=== PATIENT | female | born 1960 | race Hispanic/Latino ===

== ENCOUNTER 2017-04-23 19:21 | Inpatient (IN) | payer MEDICAID ==
[2017-04-23] MEDS ORDERED: Iohexol 240 (50 ml) PO ONE (20:14)
[2017-04-23] MEDS ORDERED: Sodium Chloride 0.9% 1,000 ML IV STA (20:15)
--- NOTE | 2017-04-23 20:51 | ED PDOC ---
HPI: Abdomen Time Seen by Provider: 04/23/17 19:59 Chief Complaint (Nursing): Abdominal Pain Chief Complaint (Provider): Abdominal Pain History Per: Patient History/Exam Limitations: no limitations Onset/Duration Of Symptoms: Days (x2) Additional Complaint(s): Marita Montilla is a 56 year old female with previous medical history of diabetes, hypertension, and hypercholesterolemia who presents to the emergency department with a complaint of right-sided abdominal pain associated with nausea , constipation, small amount of clear urine frequency, nonbloody and nonbilious vomiting. Denied any dysuria, fever or chills. Of note, patient was told by PCP avoid NSAIDs due to potential renal damage. PMD: Sebas Mcmillan MD Past Medical History Reviewed: Historical Data, Nursing Documentation, Vital Signs Vital Signs: Last Vital Signs Temp 99.1 F 04/23/17 19:29 Pulse 103 H 04/23/17 19:29 Resp 16 04/23/17 19:29 BP 137/72 04/23/17 19:29 Pulse Ox 97 04/24/17 00:30 - Medical History PMH: Diabetes, HTN, Hypercholesterolemia - Family History Family History: States: Unknown Family Hx - Home Medications Home Medications: Ambulatory Orders Medication Instructions Recorded Carvedilol [Coreg] 12.5 mg PO BID 04/23/17 Cholecalciferol (Vitamin D3) 1 cap PO DAILY 04/23/17 [Vitamin D3] Fenofibrate,Micronized 134 mg PO DAILY 04/23/17 [Fenofibrate] Insulin Regular [HumuLIN R] 5 units SC TID 04/23/17 Insulin Glargine, Recombina 12.5 unit SC DAILY 04/23/17 [Lantus] Lisinopril/Hydrochlorothiazide 1 tab PO DAILY 04/23/17 [Lisinopril-Hctz 20-12.5 mg Tab] SITagliptin [Januvia] 1 tab PO DAILY 04/23/17 Simvastatin [Simvastatin] 1 tab PO DAILY 04/23/17 metFORMIN [glucOPHAGE] 750 mg PO BID 04/23/17 Levothyroxine [Synthroid] 50 mcg PO DAILY 04/24/17 - Allergies Allergies/Adverse Reactions: Allergies Allergy/AdvReac Type Severity Reaction Status Date / Time No Known Allergies Allergy Verified 09/30/16 19:31 Review of Systems ROS Statement: Except As Marked, All Systems Reviewed And Found Negative Constitutional: Negative for: Fever, Chills Gastrointestinal: Positive for: Nausea, Vomiting (nonbloody and nonbilious), Abdominal Pain (right-sided), Constipation Genitourinary Female: Positive for: Frequency (clear, small amount). Negative for: Dysuria Physical Exam - Reviewed Nursing Documentation Reviewed: Yes Vital Signs Reviewed: Yes - Physical Exam Appears: Positive for: Well, Non-toxic, No Acute Distress Head Exam: Positive for: ATRAUMATIC, NORMAL INSPECTION, NORMOCEPHALIC Skin: Positive for: Normal Color Cardiovascular/Chest: Positive for: Regular Rate, Rhythm Respiratory: Positive for: Normal Breath Sounds Gastrointestinal/Abdominal: Positive for: Bowel Sounds, Soft, Tenderness (RLQ). Negative for: Normal Exam Extremity: Positive for: Normal ROM Neurologic/Psych: Positive for: Alert, labor representative II-XII, Oriented - Laboratory Results Result Diagrams: 04/23/17 20:50 04/23/17 20:50 - ECG O2 Sat by Pulse Oximetry: 97 (RA) Pulse Ox Interpretation: Normal Medical Decision Making Medical Decision Making: Initial Impression: Abdominal pain R/O appendicitis and diverticulitis Initial Plan: * Type and screen * CT ABD/pelvis PO & IV contrast * Labs * Lipase * Urine dipstick * Morphine 2mg IVP * NS 1,000ml IV per 500mls/hr * Zofran 4mg IVP * Urinalysis * Admit to hospital * Reevaluation 1220 CT Abdomen and Pelvis With Intravenous Contrast TECHNIQUE: Axial computed tomography images of the abdomen and pelvis with intravenous contrast. This CT exam was performed using one or more of the following dose reduction techniques : automated exposure control, adjustment of the mA and/or kV according to patient size, and/ or use of iterative reconstruction technique. Coronal and sagittal reformatted images were created and reviewed. COMPARISON: No relevant prior studies available. FINDINGS: Fatty enlarged liver. Cholelithiasis. The spleen, pancreas and adrenal glands demonstrate no acute abnormalities. No obstructing renal calculus or hydronephrosis. Please note evaluation for underlying visceral lesions/abnormalities limited without intravenous contrast. Atherosclerosis. CT appendix is dilated with surrounding fluid and inflammatory stranding. Radiodense material within the appendix, question appendicoliths versus minimal enteric contrast. Inflammation involves adjacent small bowel as well as adjacent sigmoid colon. Colonic diverticula. Minimal free fluid. Limited evaluation of the unenhanced pelvic viscera, contour unremarkable. Degenerative changes. IMPRESSION: Appearance most consistent with acute appendicitis. Please see additional details/findings as above. Some of the above findings warrant followup evaluation. CT done without contrast given low GFR. Case discussed with Dr. Su of surgery and Dr. Pearce, hospitalist. Will admit. Blood cultures drawn prior to ABx administraition. Scribe Attestation: Documented by Brionna White, acting as a scribe for Rosas Alexis MD. Provider Scribe Attestation: All medical record entries made by the Scribe were at my direction and personally dictated by me. I have reviewed the chart and agree that the record accurately reflects my personal performance of the history, physical exam, medical decision making, and the department course for this patient. I have also personally directed, reviewed, and agree with the discharge instructions and disposition. ED OBSERVATION Date of observation admission: 04/23/17 Time of observation admission: 20:15 - Observation admission statement Patient is being placed in observation because:: RLQ pain - Goals of Observation Goals of observation are:: Resolution of abdominal pain. Pending CT ABD/Pelvis results. - Progress Note Progress Note: Time: 2144 --Patient is resting comfortably with stable vital signs. Pending CT scan. Disposition - Clinical Impression Clinical Impression: Appendicitis - Disposition Disposition Time: 00:30 Condition: STABLE
[2017-04-23 21:04] LABS: BASO # 0.1 K/uL (0.0-0.2); BASO % 0.6 % (0.0-2.0); EOS % 0.1 % (0.0-4.0); HEMOGLOBIN 12.9 g/dL (12.0-16.0); LYMPH # 1.3 K/uL (1.0-4.3); LYMPH % 6.5 % (20.0-40.0); MEAN CELL VOLUME 93.7 fl (81.0-99.0); MEAN CORPUSCULAR HEMOGLOBIN 30.4 pg (27.0-31.0); MEAN CORPUSCULAR HGB CONC 32.5 g/dL (33.0-37.0); MEAN PLATELET VOLUME 9.7 fl (7.2-11.7); MONO # 1.1 K/uL (0.0-0.8); MONO % 5.1 % (0.0-10.0); NEUT % 87.7 % (50.0-75.0); PLATELET COUNT 295 K/uL (130-400); RBC 4.25 Mil/uL (3.80-5.20); RED CELL DISTRIBUTION WIDTH 14.3 % (11.5-14.5); WHITE BLOOD COUNT 20.5 K/uL (4.8-10.8)
[2017-04-23] MEDS ORDERED: Iohexol 240 (50 ml) ONE (21:09)
[2017-04-23 21:22] LABS: ALB/GLOB RATIO 1.3 (1.0-2.1); ALBUMIN 4.4 g/dL (3.5-5.0); CALCIUM 9.6 mg/dL (8.4-10.2)
[2017-04-23 21:32] LABS: SQUAMOUS EPITHIAL 2 /hpf (0-5); URINE BILIRUBIN NEGATIVE (NEGATIVE); URINE BLOOD SMALL (NEGATIVE); URINE CLARITY SLIGHTY-CLOUDY (Clear); URINE COLOR YELLOW (YELLOW); URINE GLUCOSE (UA) >=500 mg/dL (Normal); URINE LEUKOCYTE ESTERASE NEG Leu/uL (Negative); URINE NITRATE NEGATIVE (NEGATIVE); URINE PROTEIN 30 mg/dL (NEGATIVE); URINE UROBILINOGEN 0.2-1.0 mg/dL (0.2-1.0)
[2017-04-23 22:03] LABS: LYMPHOCYTE 10 % (20-50); MONOCYTE 5 % (0-10); NEUTROPHIL 85 % (42-75); PLATELET ESTIMATE NORMAL (NORMAL); TOTAL CELLS COUNTED 100
[2017-04-23 22:30] LABS: VENOUS BLOOD GAS BASE EXCESS -3.9 mmol/L (0.0-2.0); VENOUS BLOOD GAS PCO2 43 mmHg (40-60); VENOUS BLOOD GAS PO2 15 mm/Hg (30-55); VENOUS BLOOD PH 7.32 (7.32-7.43)
[2017-04-24] MEDS ORDERED: Piperacillin/Tazobact 3.375 GM in Sodium Chloride 0.9% 100 ML IVPB STA (00:21)
--- NOTE | 2017-04-24 00:21 | CT ---
EXAM: CT Abdomen and Pelvis With Intravenous Contrast CLINICAL HISTORY: 56 years old, female; Pain; Abdominal pain; Localized; Right; Additional info: R sided abd pain TECHNIQUE: Axial computed tomography images of the abdomen and pelvis with intravenous contrast. This CT exam was performed using one or more of the following dose reduction techniques: automated exposure control, adjustment of the mA and/or kV according to patient size, and/or use of iterative reconstruction technique. Coronal and sagittal reformatted images were created and reviewed. COMPARISON: No relevant prior studies available. FINDINGS: Fatty enlarged liver. Cholelithiasis. The spleen, pancreas and adrenal glands demonstrate no acute abnormalities. No obstructing renal calculus or hydronephrosis. Please note evaluation for underlying visceral lesions/abnormalities limited without intravenous contrast. Atherosclerosis. CT appendix is dilated with surrounding fluid and inflammatory stranding. Radiodense material within the appendix, question appendicoliths versus minimal enteric contrast. Inflammation involves adjacent small bowel as well as adjacent sigmoid colon. Colonic diverticula. Minimal free fluid. Limited evaluation of the unenhanced pelvic viscera, contour unremarkable. Degenerative changes. IMPRESSION: Appearance most consistent with acute appendicitis. Please see additional details/findings as above. Some of the above findings warrant followup evaluation. Spoke with Rosas Maciel on 04/24/2017 12:17 AM EDT.
[2017-04-24] MEDS ORDERED: Sodium Chloride 0.9% 1,000 ML IV STA (00:23)
[2017-04-24] MEDS ORDERED: Piperacillin/Tazobact 3.375 gm Inj IVPB ONE (00:23)
--- NOTE | 2017-04-24 00:41 | CP.PCM.HP ---
History of Present Illness - History of Present Illness History of Present Illness: PMD: Sebas Mcmillan MD Chief Complaint: Abdominal pain HPI: 56 years old female with hx of DM II, HTN, HLD, comes with 2 days of sudden unset of severe, continuous, sharp RLQ abdominal pain, radiating to the infra umbilical region and associated with nausea and vomits. Associated with urinary frequency and constipation. No Dysuria nor prior hx of abdominal pains. No surgeries, No fever. PMH: HTN; HLD; DM II; Hypothyroidism; Polycystic ovarian syndrome; Stage III Kidney disease; Chronic lower back pain; Broken right wrist; Arthritis of the right upper extremity; Dupuytren contraction of the left hand; Diabetic neuropathy PSH: No known surgeries SH: No illegal drug use; Never smoked; No alcohol; works as Sheet [employer] FH: Mother with ESKD on HD Allergy: NKDA Present on Admission - Present on Admission Any Indicators Present on Admission: Yes History of DVT/PE: No History of Uncontrolled Diabetes: Yes Urinary Catheter: No Decubitus Ulcer Present: No Review of Systems - Constitutional Constitutional: absent: Anorexia, Fatigue, Fever, Headache - EENT Eyes: Requires Corrective Lenses. absent: Diplopia, Floaters, Photophobia Ears: absent: Decreased Hearing, Ear Discharge, Tinnitus Nose/Mouth/Throat: absent: Epistaxis, Nasal Congestion, Nasal Discharge - Cardiovascular Cardiovascular: absent: Chest Pain, Dyspnea, Edema - Respiratory Respiratory: absent: Cough, Dyspnea, Wheezing, Stridor - Musculoskeletal Musculoskeletal: Back Pain - Integumentary Integumentary: absent: Pruritus, Rash, Sores, Striae, Swelling - Neurological Neurological: Paresthesias. absent: Confusion, Focal Weakness, Weakness - Psychiatric Psychiatric: absent: Anxiety, Depression, Panic Attacks - Endocrine Endocrine: absent: Palpitations, Polydipsia, Polyphagia, Polyuria - Hematologic/Lymphatic Hematologic: absent: Easy Bleeding, Easy Bruising Past Patient History - Past Social History Smoking Status: Never Smoked Chewing Tobacco Use: No Cigar Use: No Alcohol: None Drugs: Denies - CARDIAC Hx Hypercholesterolemia: Yes Hx Hypertension: Yes - NEUROLOGICAL Hx Neurological Disorder: No - HEENT Hx HEENT Problems: No - RENAL Hx Chronic Kidney Disease: Yes - ENDOCRINE/METABOLIC Hx Diabetes Mellitus Type 2: Yes Hx Hypothyroidism: Yes - HEMATOLOGICAL/ONCOLOGICAL Hx Blood Disorders: No - INTEGUMENTARY Hx Dermatological Problems: No - MUSCULOSKELETAL/RHEUMATOLOGICAL Hx Back Pain: Yes - GASTROINTESTINAL Hx Gastrointestinal Disorders: No - GENITOURINARY/GYNECOLOGICAL Hx Genitourinary Disorders: No - PSYCHIATRIC Hx Substance Use: No Meds Allergies/Adverse Reactions: Allergies Allergy/AdvReac Type Severity Reaction Status Date / Time No Known Allergies Allergy Verified 09/30/16 19:31 Physical Exam - Constitutional Appears: No Acute Distress - Head Exam Head Exam: ATRAUMATIC, NORMAL INSPECTION, NORMOCEPHALIC - Eye Exam Eye Exam: EOMI, PERRL Pupil Exam: NORMAL ACCOMODATION, PERRL - ENT Exam ENT Exam: Mucous Membranes Moist, Normal Exam, Normal External Ear Exam, Normal Oropharynx - Neck Exam Neck exam: Positive for: Full Rom, Normal Inspection. Negative for: Lymphadenopathy, Tenderness - Respiratory Exam Respiratory Exam: Clear to Auscultation Bilateral. absent: Rales, Rhonchi, Wheezes - Cardiovascular Exam Cardiovascular Exam: REGULAR RHYTHM, +S1, +S2 - GI/Abdominal Exam Additional comments: Soft, Decreased bowel sounds, Tender at the RLQ, no guarding but mild rebound tenderness. - Rectal Exam Rectal Exam: Deferred - Extremities Exam Extremities exam: Positive for: full ROM, normal inspection. Negative for: calf tenderness, pedal edema - Back Exam Back exam: NORMAL INSPECTION. absent: CVA tenderness (L), CVA tenderness (R) - Neurological Exam Neurological exam: Alert, CN II-XII Intact, Oriented x3, Reflexes Normal - Psychiatric Exam Psychiatric exam: Normal Affect, Normal Mood - Skin Skin Exam: Dry, Intact, Normal Color, Warm Results - Vital Signs Recent Vital Signs: Last Vital Signs Temp 99.1 F 04/23/17 19:29 Pulse 103 H 04/23/17 19:29 Resp 16 04/23/17 19:29 BP 137/72 04/23/17 19:29 Pulse Ox 97 04/24/17 00:30 - Labs Result Diagrams: 04/23/17 20:50 04/23/17 20:50 Labs: Laboratory Results - last 24 hr 04/23/17 04/23/17 04/23/17 20:43 20:50 20:50 WBC 20.5 H RBC 4.25 Hgb 12.9 Hct 39.8 MCV 93.7 MCH 30.4 MCHC 32.5 L RDW 14.3 Plt Count 295 MPV 9.7 Neut % (Auto) 87.7 H Lymph % (Auto) 6.5 L [place] % (Auto) 5.1 Eos % (Auto) 0.1 Baso % (Auto) 0.6 Neut # 18.0 H Lymph # 1.3 [place] # 1.1 H Eos # 0.0 Baso # 0.1 Neutrophils % (Manual) 85 H Lymphocytes % (Manual) 10 L Monocytes % (Manual) 5 Platelet Estimate Normal pO2 VBG pH VBG pCO2 VBG HCO3 VBG Total CO2 VBG O2 Sat (Calc) VBG Base Excess VBG Potassium Glucose Lactate FiO2 Sodium 135 Potassium 4.1 Chloride 97 L Carbon Dioxide 18 L Anion Gap 24 H BUN 17 Creatinine 1.3 H Est GFR ( Amer) 51 Est GFR (Non-Af Amer) 42 Random Glucose 184 H Calcium 9.6 Total Bilirubin 0.9 AST 22 ALT 30 Alkaline Phosphatase 56 Total Protein 7.8 Albumin 4.4 Globulin 3.5 Albumin/Globulin Ratio 1.3 Lipase 44 Venous Blood Potassium Urine Color Yellow Urine Clarity Slighty-cloudy Urine pH 5.0 Ur Specific [place] 1.031 H Urine Protein 30 Urine Glucose (UA) >=500 Urine Ketones 80 Urine Blood Small Urine Nitrate Negative Urine Bilirubin Negative Urine Urobilinogen 0.2-1.0 Ur Leukocyte Esterase Neg Urine RBC (Auto) 3 Urine Microscopic WBC 11 H Ur Squamous Epith Cells 2 Blood Type Antibody Screen BBK History Checked 04/23/17 04/23/17 20:50 22:24 WBC RBC Hgb Hct MCV MCH MCHC RDW Plt Count MPV Neut % (Auto) Lymph % (Auto) [place] % (Auto) Eos % (Auto) Baso % (Auto) Neut # Lymph # [place] # Eos # Baso # Neutrophils % (Manual) Lymphocytes % (Manual) Monocytes % (Manual) Platelet Estimate pO2 15 L VBG pH 7.32 VBG pCO2 43 VBG HCO3 19.7 VBG Total CO2 23.5 VBG O2 Sat (Calc) 22.7 L VBG Base Excess -3.9 L VBG Potassium 4.5 Glucose 174 H Lactate 1.9 FiO2 21.0 Sodium 133.0 Potassium Chloride 94.0 L Carbon Dioxide Anion Gap BUN Creatinine Est GFR ( Amer) Est GFR (Non-Af Amer) Random Glucose Calcium Total Bilirubin AST ALT Alkaline Phosphatase Total Protein Albumin Globulin Albumin/Globulin Ratio Lipase Venous Blood Potassium 4.5 Urine Color Urine Clarity Urine pH Ur Specific [place] Urine Protein Urine Glucose (UA) Urine Ketones Urine Blood Urine Nitrate Urine Bilirubin Urine Urobilinogen Ur Leukocyte Esterase Urine RBC (Auto) Urine Microscopic WBC Ur Squamous Epith Cells Blood Type A POSITIVE Antibody Screen Negative BBK History Checked No verified bt - Imaging and Cardiology CT scan - abdomen Status: Report reviewed by me Additional comment: FINDINGS: Fatty enlarged liver. Cholelithiasis. The spleen, pancreas and adrenal glands demonstrate no acute abnormalities. No obstructing renal calculus or hydronephrosis. Please note evaluation for underlying visceral lesions/abnormalities limited without intravenous contrast. Atherosclerosis. CT appendix is dilated with surrounding fluid and inflammatory stranding. Radiodense material within the appendix, question appendicoliths versus minimal enteric contrast. Inflammation involves adjacent small bowel as well as adjacent sigmoid colon. Colonic diverticula. Minimal free fluid. Limited evaluation of the unenhanced pelvic viscera, contour unremarkable. Degenerative changes. IMPRESSION: Appearance most consistent with acute appendicitis. Please see additional details/findings as above. Some of the above findings warrant followup evaluation. Assessment & Plan - Assessment and Plan (Free Text) Assessment: #. Acute Appendicitis #. DM II with Hyperglycemia #. Leukocytosis #. CKD III Plan: 56 years old female with hx of DM II, HTN, HLD, comes with 2 days of sudden unset of severe, continuous, sharp RLQ abdominal pain, radiating to the infra umbilical region and associated with nausea and vomits. Associated with urinary frequency and constipation. No Dysuria nor prior hx of abdominal pains. No surgeries, No fever. #. Acute Appendicitis - Consult Dr Veliz surgery - NPO - IV Fluids NS at 125mls/hr - Zosyn #. DM II with Hyperglycemia - Hold Metformin - Hold januvia - Regular Insulin sliding scale according toAccuchecks - HbA1c #. Leukocytosis due to the Appendicitis - Follow CBC #. CKD III - IV fluids - follow Renal labs #. Stress ulcer Prophylaxis - Pepcid #. DVT prophylaxis with SCD #. Code Status: Full - Date & Time Date: 04/24/17 Time: 00:41
--- NOTE | 2017-04-24 01:39 | CP.PCM.CON ---
<Edu Su - Last Filed: 04/24/17 01:35> History of Present Illness - History of Present Illness History of Present Illness: 56F w/ PMHx of HTN, DM, hyperlipidemia, PCOS, presents to the ED with complaints of abdominal pain. Patient states pain began Monday morning, states initially pain was along sydnee-umbilical region and through time it began to localize along RLQ. Patient reports having multiple bouts of emesis Monday night into Monday morning. Patient states at its worse pain was a 10/10, at time of examination patient reported mild improvement of RLQ pain and rated in as a 7/10. Patient states she has never experienced these types of symptoms before. Reports subjective fever/chills. Denies chest pain/SOB, dysuria. PMHx: as stated above PSurgHx: denies Allergies: NKDA Soc Hx: Denies smoking, EtOH use, illicit drug use Review of Systems - Review of Systems Review of Systems: 12pt ROS carried out, unremarkable, except as stated in HPI Past Patient History - Past Social History Smoking Status: Never Smoked - CARDIAC Hx Hypercholesterolemia: Yes Hx Hypertension: Yes - ENDOCRINE/METABOLIC Hx Diabetes Mellitus Type 2: Yes Hx Hypothyroidism: Yes - PSYCHIATRIC Hx Substance Use: No Meds Allergies/Adverse Reactions: Allergies Allergy/AdvReac Type Severity Reaction Status Date / Time No Known Allergies Allergy Verified 09/30/16 19:31 - Medications Medications: Current Medications Piperacillin Sod/Tazobactam (Sod 3.375 gm/ Sodium Chloride) 100 mls @ 100 mls/ hr IVPB Q6 [facility] Sodium Chloride (Sodium Chloride 0.9%) 1,000 mls @ 125 mls/hr IV .Q8H [facility] Stop: 04/25/17 01:12 Insulin Human Regular (Humulin R) 0 units SC Q6H [facility] PRN Reason: Protocol Morphine Sulfate (Morphine) 4 mg IVP Q4 PRN PRN Reason: Pain, severe (8-10) Morphine Sulfate (Morphine) 2 mg IVP Q4 PRN PRN Reason: Pain, moderate (4-7) Ondansetron HCl (Zofran Inj) 4 mg IVP Q4 PRN PRN Reason: Nausea/Vomiting Physical Exam - Constitutional Appears: No Acute Distress - Head Exam Head Exam: NORMOCEPHALIC - Eye Exam Eye Exam: Normal appearance - ENT Exam ENT Exam: Mucous Membranes Moist - Neck Exam Neck exam: Positive for: Normal Inspection - Respiratory Exam Respiratory Exam: NORMAL BREATHING PATTERN - Cardiovascular Exam Cardiovascular Exam: +S1, +S2 - GI/Abdominal Exam GI & Abdominal Exam: Soft, Tenderness Additional comments: +McBurney's +Rovsing -Psoas -obturator +rebound tenderness - Extremities Exam Extremities exam: Negative for: calf tenderness - Neurological Exam Neurological exam: Alert, Oriented x3 - Psychiatric Exam Psychiatric exam: Normal Mood - Skin Skin Exam: Dry, Intact, Warm Results - Vital Signs Recent Vital Signs: Last Vital Signs Temp 99.1 F 04/23/17 19:29 Pulse 103 H 04/23/17 19:29 Resp 16 04/23/17 19:29 BP 137/72 04/23/17 19:29 Pulse Ox 97 04/24/17 01:01 - Labs Result Diagrams: 04/23/17 20:50 04/23/17 20:50 Labs: Laboratory Results - last 24 hr 04/23/17 04/23/17 04/23/17 20:43 20:50 20:50 WBC 20.5 H RBC 4.25 Hgb 12.9 Hct 39.8 MCV 93.7 MCH 30.4 MCHC 32.5 L RDW 14.3 Plt Count 295 MPV 9.7 Neut % (Auto) 87.7 H Lymph % (Auto) 6.5 L [place] % (Auto) 5.1 Eos % (Auto) 0.1 Baso % (Auto) 0.6 Neut # 18.0 H Lymph # 1.3 [place] # 1.1 H Eos # 0.0 Baso # 0.1 Neutrophils % (Manual) 85 H Lymphocytes % (Manual) 10 L Monocytes % (Manual) 5 Platelet Estimate Normal pO2 VBG pH VBG pCO2 VBG HCO3 VBG Total CO2 VBG O2 Sat (Calc) VBG Base Excess VBG Potassium Glucose Lactate FiO2 Sodium 135 Potassium 4.1 Chloride 97 L Carbon Dioxide 18 L Anion Gap 24 H BUN 17 Creatinine 1.3 H Est GFR ( Amer) 51 Est GFR (Non-Af Amer) 42 Random Glucose 184 H Calcium 9.6 Total Bilirubin 0.9 AST 22 ALT 30 Alkaline Phosphatase 56 Total Protein 7.8 Albumin 4.4 Globulin 3.5 Albumin/Globulin Ratio 1.3 Lipase 44 Venous Blood Potassium Urine Color Yellow Urine Clarity Slighty-cloudy Urine pH 5.0 Ur Specific [place] 1.031 H Urine Protein 30 Urine Glucose (UA) >=500 Urine Ketones 80 Urine Blood Small Urine Nitrate Negative Urine Bilirubin Negative Urine Urobilinogen 0.2-1.0 Ur Leukocyte Esterase Neg Urine RBC (Auto) 3 Urine Microscopic WBC 11 H Ur Squamous Epith Cells 2 Blood Type Blood Type Confirm Antibody Screen BBK History Checked 04/23/17 04/23/17 04/23/17 20:50 22:24 23:59 WBC RBC Hgb Hct MCV MCH MCHC RDW Plt Count MPV Neut % (Auto) Lymph % (Auto) [place] % (Auto) Eos % (Auto) Baso % (Auto) Neut # Lymph # [place] # Eos # Baso # Neutrophils % (Manual) Lymphocytes % (Manual) Monocytes % (Manual) Platelet Estimate pO2 15 L VBG pH 7.32 VBG pCO2 43 VBG HCO3 19.7 VBG Total CO2 23.5 VBG O2 Sat (Calc) 22.7 L VBG Base Excess -3.9 L VBG Potassium 4.5 Glucose 174 H Lactate 1.9 FiO2 21.0 Sodium 133.0 Potassium Chloride 94.0 L Carbon Dioxide Anion Gap BUN Creatinine Est GFR ( Amer) Est GFR (Non-Af Amer) Random Glucose Calcium Total Bilirubin AST ALT Alkaline Phosphatase Total Protein Albumin Globulin Albumin/Globulin Ratio Lipase Venous Blood Potassium 4.5 Urine Color Urine Clarity Urine pH Ur Specific [place] Urine Protein Urine Glucose (UA) Urine Ketones Urine Blood Urine Nitrate Urine Bilirubin Urine Urobilinogen Ur Leukocyte Esterase Urine RBC (Auto) Urine Microscopic WBC Ur Squamous Epith Cells Blood Type A POSITIVE Blood Type Confirm A POSITIVE Antibody Screen Negative BBK History Checked No verified bt - Imaging and Cardiology CT scan - abdomen Status: Image reviewed by me, Report reviewed by me Assessment & Plan - Assessment and Plan (Free Text) Assessment: 56F w/ acute appendicitis -NPO -IVF -ABx -Analgesic/ anti-emetic -EKG -CXR -AM labs -Coags -DVT/GI ppx -Patient to be scheduled for laparoscopic appendectomy possible open -Consent in chart Further recs per Dr. Keren Su PGY-2 <Chano Veliz - Last Filed: 04/25/17 20:08> Meds - Medications Medications: Current Medications Enoxaparin Sodium (Lovenox) 40 mg SC DAILY [facility] PRN Reason: Protocol Last Admin: 04/25/17 16:50 Dose: 40 mg Famotidine (Pepcid) 20 mg IVP DAILY [facility] Last Admin: 04/25/17 08:51 Dose: 20 mg Piperacillin Sod/Tazobactam (Sod 3.375 gm/ Sodium Chloride) 100 mls @ 100 mls/ hr IVPB Q6 [facility] Last Admin: 04/25/17 16:48 Dose: 100 mls/hr Metronidazole (Flagyl 500mg/100ml Ns) 100 mls @ 100 mls/hr IVPB Q8 [facility] Last Admin: 04/25/17 18:33 Dose: 100 mls/hr Sodium Chloride (Sodium Chloride 0.9%) 1,000 mls @ 100 mls/hr IV .Q10H [facility] Stop: 04/26/17 17:22 Last Admin: 04/25/17 19:34 Dose: Not Given Insulin Human Regular (Humulin R) 0 units SC Q6H [facility] PRN Reason: Protocol Last Admin: 04/25/17 13:04 Dose: 2 units Morphine Sulfate (Morphine) 4 mg IVP Q4 PRN PRN Reason: Pain, severe (8-10) Last Admin: 04/25/17 11:17 Dose: 4 mg Morphine Sulfate (Morphine) 2 mg IVP Q4 PRN PRN Reason: Pain, moderate (4-7) Last Admin: 04/25/17 16:57 Dose: 2 mg Ondansetron HCl (Zofran Inj) 4 mg IVP Q4 PRN PRN Reason: Nausea/Vomiting Results - Vital Signs Recent Vital Signs: Last Vital Signs Temp 97.6 F 04/25/17 15:49 Pulse 94 H 04/25/17 15:49 Resp 18 04/25/17 15:49 BP 112/68 04/25/17 15:49 Pulse Ox 98 04/25/17 15:49 - Labs Result Diagrams: 04/25/17 06:00 04/25/17 06:00 Labs: Laboratory Results - last 24 hr 04/24/17 04/25/17 04/25/17 20:20 01:31 06:00 WBC 16.9 H RBC 3.76 L Hgb 11.6 L Hct 36.3 MCV 96.7 D MCH 30.8 MCHC 31.9 L RDW 15.4 H Plt Count 265 MPV 9.5 Neut % (Auto) 87.5 H Lymph % (Auto) 6.4 L [place] % (Auto) 5.8 Eos % (Auto) 0.0 Baso % (Auto) 0.3 Neut # 14.8 H Lymph # 1.1 [place] # 1.0 H Eos # 0.0 Baso # 0.0 Sodium Potassium Chloride Carbon Dioxide Anion Gap BUN Creatinine Est GFR ( Amer) Est GFR (Non-Af Amer) POC Glucose (mg/dL) 197 H 191 H Random Glucose Calcium Total Bilirubin AST ALT Alkaline Phosphatase Total Protein Albumin Globulin Albumin/Globulin Ratio 04/25/17 04/25/17 04/25/17 06:00 06:47 10:49 WBC RBC Hgb Hct MCV MCH MCHC RDW Plt Count MPV Neut % (Auto) Lymph % (Auto) [place] % (Auto) Eos % (Auto) Baso % (Auto) Neut # Lymph # [place] # Eos # Baso # Sodium 138 Potassium 4.6 Chloride 105 Carbon Dioxide 12 L Anion Gap 26 H BUN 16 Creatinine 1.3 H Est GFR ( Amer) 51 Est GFR (Non-Af Amer) 42 POC Glucose (mg/dL) 156 H 178 H Random Glucose 155 H Calcium 8.9 Total Bilirubin 0.9 AST 39 H D ALT 42 Alkaline Phosphatase 74 Total Protein 6.9 Albumin 3.6 Globulin 3.3 Albumin/Globulin Ratio 1.1 04/25/17 16:04 WBC RBC Hgb Hct MCV MCH MCHC RDW Plt Count MPV Neut % (Auto) Lymph % (Auto) [place] % (Auto) Eos % (Auto) Baso % (Auto) Neut # Lymph # [place] # Eos # Baso # Sodium Potassium Chloride Carbon Dioxide Anion Gap BUN Creatinine Est GFR ( Amer) Est GFR (Non-Af Amer) POC Glucose (mg/dL) 169 H Random Glucose Calcium Total Bilirubin AST ALT Alkaline Phosphatase Total Protein Albumin Globulin Albumin/Globulin Ratio Attending/Attestation - Attestation I have personally seen and examined this patient.: Yes I have fully participated in the care of the patient.: Yes I have reviewed all pertinent clinical information: Yes Notes (Text): 04/25/17 20:07 Pt was seen and examined at bedside on 04/24/17 Agree with above note and assessment Pt with Acute Appendicitis CT scan and Labs reviewed OR for Lap Appendectomy possible Open Consent NPO, IVF IV antibiotics Plan d.w pt in detail. Risk and benefit explained in detail.
[2017-04-24] MEDS: Sodium Chloride 0.9% 1,000 ML IV SCH ×3 (02:04→10:03)
[2017-04-24] MEDS: Insulin Regular 100 units/ml SC SCH ×4 (02:36→19:44)
[2017-04-24] MEDS: Morphine 4 MG/ML VIAL IVP PRN ×4 (02:42→20:24)
[2017-04-24 07:22] LABS: BASO % 0.2 % (0.0-2.0); HEMOGLOBIN 11.8 g/dL (12.0-16.0); LYMPH # 1.4 K/uL (1.0-4.3); LYMPH % 6.8 % (20.0-40.0); MEAN CELL VOLUME 94.3 fl (81.0-99.0); MEAN CORPUSCULAR HEMOGLOBIN 30.6 pg (27.0-31.0); MEAN CORPUSCULAR HGB CONC 32.5 g/dL (33.0-37.0); MEAN PLATELET VOLUME 9.7 fl (7.2-11.7); MONO # 1.2 K/uL (0.0-0.8); NEUT # 17.3 K/uL (1.8-7.0); RBC 3.86 Mil/uL (3.80-5.20); RED CELL DISTRIBUTION WIDTH 14.7 % (11.5-14.5); WHITE BLOOD COUNT 19.9 K/uL (4.8-10.8)
[2017-04-24 07:34] LABS: ALB/GLOB RATIO 1.2 (1.0-2.1); ALBUMIN 3.7 g/dL (3.5-5.0); CALCIUM 8.6 mg/dL (8.4-10.2)
[2017-04-24] MEDS: Piperacillin/Tazobact 3.375 GM in Sodium Chloride 0.9% 100 ML IVPB SCH ×2 (10:03→21:15)
--- NOTE | 2017-04-24 14:31 | RAD ---
HISTORY: Pre-OP COMPARISON: No prior. FINDINGS: LUNGS: No active pulmonary disease. PLEURA: No significant pleural effusion identified, no pneumothorax apparent. CARDIOVASCULAR: No radiographic findings to suggest acute or significant cardiovascular disease. OSSEOUS STRUCTURES: No significant abnormalities. VISUALIZED UPPER ABDOMEN: Normal. OTHER FINDINGS: None. IMPRESSION: No active disease.
[2017-04-24] MEDS ORDERED: Lidocaine 1% Inj (20ml) ONE (15:05)
[2017-04-24] MEDS ORDERED: Bupivacaine 0.5% Inj(30mL) ONE (15:06)
[2017-04-24] MEDS ORDERED: Propofol 10 mg/ml Inj (20 ML) ONE ×2 (15:43→16:37)
[2017-04-24] MEDS ORDERED: Lactated Ringer's 1,000 ML IV ONE (15:43)
[2017-04-24] MEDS ORDERED: Rocuronium 10 mg/ml (5 ml) ONE (15:45)
[2017-04-24] MEDS ORDERED: Midazolam 2 MG/2 ML VIAL ONE (15:45)
[2017-04-24] MEDS ORDERED: Sevoflurane - Inhalation Anesthetic Liq (250 ml) ONE (16:28)
[2017-04-24] MEDS ORDERED: Neostigmine Methylsulfate 3mg/3ml Syringe IV ONE (16:33)
[2017-04-24] MEDS ORDERED: Succinylcholine 200 mg/10 ml Inj IV ONE (16:55)
[2017-04-24] MEDS ORDERED: Neostigmine Methylsulfate 2 MG/2 ML ML IV ONE (17:04)
[2017-04-24] MEDS ORDERED: Dexamethasone 4 mg/1 ml IVP PRN (17:16)
--- NOTE | 2017-04-24 17:16 | PCM.SURG1 ---
Surgeon's Initial Post Op Note - Surgeon's Notes Surgeon: Dr. Veliz Marine Extension Agent: Lisa Campo PGY2, Bacilio PGY1 Type of Anesthesia: General Endo Pre-Operative Diagnosis: Acute appendicitis Operative Findings: Perforated appendix, pelvic fluids, flagmon, inflammation Post-Operative Diagnosis: acute appy Operation Performed: laparoscopic appendectomy with drain Specimen/Specimens Removed: appendix Estimated Blood Loss: EBL {In ML}: 10 Blood Products Given: N/A Drains Used: Finesse Date of Surgery/Procedure: 04/24/17 Time of Surgery/Procedure: 17:16
[2017-04-24] MEDS: HYDROmorphone 0.5 mg/0.5 ml ISec IVP PRN ×2 (17:25→18:25)
[2017-04-25] MEDS: Morphine 4 MG/ML VIAL IVP PRN ×4 (01:04→16:57)
[2017-04-25] MEDS: Insulin Regular 100 units/ml SC SCH ×4 (01:31→20:45)
[2017-04-25] MEDS: Piperacillin/Tazobact 3.375 GM in Sodium Chloride 0.9% 100 ML IVPB SCH ×5 (03:37→21:18)
[2017-04-25 07:13] LABS: BASO % 0.3 % (0.0-2.0); HEMOGLOBIN 11.6 g/dL (12.0-16.0); LYMPH # 1.1 K/uL (1.0-4.3); LYMPH % 6.4 % (20.0-40.0); MEAN CELL VOLUME 96.7 fl (81.0-99.0); MEAN CORPUSCULAR HEMOGLOBIN 30.8 pg (27.0-31.0); MEAN CORPUSCULAR HGB CONC 31.9 g/dL (33.0-37.0); MEAN PLATELET VOLUME 9.5 fl (7.2-11.7); MONO % 5.8 % (0.0-10.0); NEUT # 14.8 K/uL (1.8-7.0); NEUT % 87.5 % (50.0-75.0); RBC 3.76 Mil/uL (3.80-5.20); RED CELL DISTRIBUTION WIDTH 15.4 % (11.5-14.5); WHITE BLOOD COUNT 16.9 K/uL (4.8-10.8)
[2017-04-25 07:21] LABS: ALB/GLOB RATIO 1.1 (1.0-2.1); ALBUMIN 3.6 g/dL (3.5-5.0); CALCIUM 8.9 mg/dL (8.4-10.2)
--- NOTE | 2017-04-25 07:29 | CP.PCM.PN ---
Subjective - Date & Time of Evaluation Date of Evaluation: 04/25/17 Time of Evaluation: 07:27 - Subjective Subjective: Surgery for Dr. Veliz Pt s&e. Pt underwent laparoscopic appendectomy yesterday and tolerated it well. Denies F/C?N/V/D/CP/SOB. + void, + amb. Objective - Vital Signs/Intake and Output Vital Signs (last 24 hours): Temp Pulse Resp BP Pulse Ox 97.4 F L 91 H 19 108/75 98 04/25/17 05:00 04/25/17 05:00 04/25/17 05:00 04/25/17 05:00 04/25/17 05:00 - Medications Medications: Current Medications Famotidine (Pepcid) 20 mg IVP DAILY [facility] Last Admin: 04/24/17 10:02 Dose: 20 mg Piperacillin Sod/Tazobactam (Sod 3.375 gm/ Sodium Chloride) 100 mls @ 100 mls/ hr IVPB Q6 [facility] Last Admin: 04/25/17 03:37 Dose: 100 mls/hr Insulin Human Regular (Humulin R) 0 units SC Q6H [facility] PRN Reason: Protocol Last Admin: 04/25/17 01:31 Dose: Not Given Morphine Sulfate (Morphine) 4 mg IVP Q4 PRN PRN Reason: Pain, severe (8-10) Last Admin: 04/25/17 01:04 Dose: 4 mg Morphine Sulfate (Morphine) 2 mg IVP Q4 PRN PRN Reason: Pain, moderate (4-7) Last Admin: 04/25/17 05:33 Dose: 2 mg Ondansetron HCl (Zofran Inj) 4 mg IVP Q4 PRN PRN Reason: Nausea/Vomiting - Labs Labs: 04/24/17 06:50 04/24/17 06:50 - Constitutional Appears: No Acute Distress - Eye Exam Eye Exam: EOMI, Normal appearance, PERRL Pupil Exam: NORMAL ACCOMODATION, PERRL - ENT Exam ENT Exam: Mucous Membranes Moist, Normal Exam - Neck Exam Neck Exam: Full ROM, Normal Inspection. absent: Lymphadenopathy - Respiratory Exam Respiratory Exam: Clear to Ausculation Bilateral, NORMAL BREATHING PATTERN - Cardiovascular Exam Cardiovascular Exam: REGULAR RHYTHM, +S1, +S2. absent: Murmur - GI/Abdominal Exam GI & Abdominal Exam: Soft, Tenderness, Normal Bowel Sounds. absent: Distended, Firm, Guarding, Rigid Additional comments: Drain in place 90cc. Incision C/D/I. TTP - Exam Exam: NORMAL INSPECTION - Extremities Exam Extremities Exam: Full ROM, Normal Inspection - Back Exam Back Exam: NORMAL INSPECTION - Neurological Exam Neurological Exam: Alert, Awake, CN II-XII Intact, Normal Gait, Oriented x3 - Psychiatric Exam Psychiatric exam: Normal Affect, Normal Mood - Skin Skin Exam: Dry, Intact, Normal Color, Warm Assessment and Plan - Assessment and Plan (Free Text) Assessment: pod 1 s/p lap appy -Reg diet -F/U labs -Pain control -Keep drains for 2 weeks -ABX Will DW Dr. Veliz
[2017-04-25] MEDS ORDERED: Rocuronium 10 mg/ml (5 ml) ONE (09:34)
[2017-04-25] MEDS: metroNIDAZOLE 500mg/100ml NS 100 ML IVPB SCH ×2 (11:00→18:33)
[2017-04-25] MEDS: Enoxaparin 40 mg Syringe SC SCH (16:50)
--- NOTE | 2017-04-25 17:22 | CP.PCM.PN ---
Subjective - Date & Time of Evaluation Date of Evaluation: 04/25/17 Time of Evaluation: 17:00 - Subjective Subjective: Patient was seen and examined bedside. Lying in bed in NAd. Drain to lower abdomen with sero sanguinous output. Hemodynamically stable, afebrile last 12 hours WBC trending down to 16.9 Feelin better but still with lower abdominal pain with ambulation Tolerating po intake Objective - Vital Signs/Intake and Output Vital Signs (last 24 hours): Temp Pulse Resp BP Pulse Ox 97.6 F 94 H 18 112/68 98 04/25/17 15:49 04/25/17 15:49 04/25/17 15:49 04/25/17 15:49 04/25/17 15:49 Intake and Output: 04/25/17 04/25/17 06:59 18:59 Intake Total 250 Balance 250 - Medications Medications: Current Medications Enoxaparin Sodium (Lovenox) 40 mg SC DAILY [facility] PRN Reason: Protocol Last Admin: 04/25/17 16:50 Dose: 40 mg Famotidine (Pepcid) 20 mg IVP DAILY [facility] Last Admin: 04/25/17 08:51 Dose: 20 mg Piperacillin Sod/Tazobactam (Sod 3.375 gm/ Sodium Chloride) 100 mls @ 100 mls/ hr IVPB Q6 [facility] Last Admin: 04/25/17 16:48 Dose: 100 mls/hr Metronidazole (Flagyl 500mg/100ml Ns) 100 mls @ 100 mls/hr IVPB Q8 [facility] Last Admin: 04/25/17 11:00 Dose: 100 mls/hr Sodium Chloride (Sodium Chloride 0.9%) 1,000 mls @ 100 mls/hr IV .Q10H [facility] Stop: 04/26/17 17:22 Insulin Human Regular (Humulin R) 0 units SC Q6H [facility] PRN Reason: Protocol Last Admin: 04/25/17 13:04 Dose: 2 units Morphine Sulfate (Morphine) 4 mg IVP Q4 PRN PRN Reason: Pain, severe (8-10) Last Admin: 04/25/17 11:17 Dose: 4 mg Morphine Sulfate (Morphine) 2 mg IVP Q4 PRN PRN Reason: Pain, moderate (4-7) Last Admin: 04/25/17 16:57 Dose: 2 mg Ondansetron HCl (Zofran Inj) 4 mg IVP Q4 PRN PRN Reason: Nausea/Vomiting - Labs Labs: 04/25/17 06:00 04/25/17 06:00 - Constitutional Appears: Non-toxic, No Acute Distress, Other (obese) - Head Exam Head Exam: ATRAUMATIC, NORMAL INSPECTION, NORMOCEPHALIC - Eye Exam Eye Exam: EOMI, Normal appearance, PERRL Pupil Exam: NORMAL ACCOMODATION - ENT Exam ENT Exam: Mucous Membranes Moist, Normal Exam - Neck Exam Neck Exam: Full ROM, Normal Inspection - Respiratory Exam Respiratory Exam: Clear to Ausculation Bilateral. absent: Rales, Rhonchi, Wheezes - Cardiovascular Exam Cardiovascular Exam: REGULAR RHYTHM, RRR, +S1, +S2. absent: JVD - GI/Abdominal Exam GI & Abdominal Exam: Normal Bowel Sounds. absent: Distended, Guarding, Tenderness, Rebound Additional comments: lower abdomen Mellisa drain in place - Rectal Exam Rectal Exam: Deferred - Extremities Exam Extremities Exam: Normal Inspection. absent: Calf Tenderness, Pedal Edema - Back Exam Back Exam: NORMAL INSPECTION - Neurological Exam Neurological Exam: Alert, Awake, CN II-XII Intact, Oriented x3 - Psychiatric Exam Psychiatric exam: Normal Affect, Normal Mood - Skin Skin Exam: Dry, Intact, Normal Color, Warm Assessment and Plan - Assessment and Plan (Free Text) Assessment: 56 years old female with hx of DM II, HTN, HLD, came with 2 day history of sudden unset of severe, continuous, sharp RLQ abdominal pain, radiating to the infra umbilical region and associated with nausea and vomits. Associated with urinary frequency and constipation. No Dysuria nor prior hx of abdominal pains. No surgeries, No fever. Cy abdomen and pelvis showed acute appendicitis patient admitted to med/surg , started on IV zosyn and surgery was consulted Her WBC count was elevated 20 k She underwent laparascopic appendectomy yesterday and LLQ MELLISA drain placed 1.Acute appendicitis s/p laparascopic appendectomy MELLISA drain lower abdomen with serosanguinous output Continue IV Zosyn and pain management Surgery following WBC trendded down from 20 K -- 16.9 K MELLISA drain to remain for a coupl eof weeks as per surgery Will discuss with surgery when patient cleared for discharge Promote ambulation 2. HTN controlled without meds hold lisinopril and coreg 3. DM hold metformin and januvia, accuchecks, insulin coverage Hgb A1c 7.8 4. Dyslipidemia -on statin 5.Hypothyroidism -on synthroid 6. MARTA most likely prerenal hold Lisinopril and Metformin Start IVF NS @ 100 cc /hr Repeta BMp in AM 7. DVt prophylaxis SCD and Lovenox
[2017-04-25] MEDS: Sodium Chloride 0.9% 1,000 ML IV SCH (19:34)
[2017-04-26] MEDS: metroNIDAZOLE 500mg/100ml NS 100 ML IVPB SCH ×3 (00:25→17:28)
[2017-04-26] MEDS: Morphine 4 MG/ML VIAL IVP PRN ×3 (00:29→09:21)
[2017-04-26] MEDS: Insulin Regular 100 units/ml SC SCH ×4 (00:35→19:03)
--- NOTE | 2017-04-26 03:17 | OP ---
PROCEDURE DATE: 04/24/2017 PREOPERATIVE DIAGNOSIS: Acute appendicitis and leukocytosis. POSTOPERATIVE DIAGNOSES: 1. Acute phlegmon of appendicitis. 2. Pelvic abscess and periappendicular abscess. 3. Extensive postinfectious adhesions of the omentum, colon and small bowel to the appendix. OPERATIONS DONE: 1. Laparoscopic appendectomy. 2. Laparoscopic drainage of pelvic abscess and periappendicular abscess. 3. Laparoscopic extensive lysis of adhesion. SURGEON: Dr. Veliz. ASSISTANTS: Jordana, PGY-2 resident and Paramjit Ribera, PGY-1 resident. ANESTHESIA: General endotracheal tube anesthesia. ESTIMATED BLOOD LOSS: Around 50 mL. DRAIN: A 19-[place] Finesse drain was placed. COMPLICATIONS: None. INTRAOPERATIVE FINDINGS: The patient had acute phlegmonous perforated appendicitis with pelvic and periappendicular abscess and patient had extensive phlegmonous inflammatory changes with inflammatory adhesion of the small bowel to the colon, small bowel to the anterior abdominal wall, small bowel to the appendix, and appendix to the lateral abdominal wall. On intraoperative test, this is a 56-year-old morbidly obese female who was diagnosed with acute appendicitis with leukocytosis, and the patient was consented for the laparoscopic appendectomy, possible open, brought to the OR, placed supine on the operating table. After induction of the anesthesia, the abdomen was prepped and draped. The supraumbilical incision was made. [place] port was placed. Pneumo was created. The 5 mm port was placed in the suprapubic region, 12 mm port was placed in left lower quadrant. A grasper and dissector was introduced. The patient was found to have pelvic and periappendicular abscess, first abscess was drained and suction irrigation of the pelvic and periappendicular area was done. Now, the phlegmonous mass was dissected with blunt and sharp dissection. The patient had extensive inflammatory changes and there were very thick adhesions, and first the small bowel was dissected free from the phlegmonous mass and the patient was found to have sigmoid colon attached to the appendix, that was also dissected free. Appendix found to have perforation at the body of the appendix and the base of the appendix was identified and base was dissected with RODRIGUEZ and the mesoappendix was dissected with the harmonic scalpel, and there was proper hemostasis achieved and after that, suction irrigation of the pelvic and periappendicular area and perihepatic area was done. A 19-[place] Finesse drain was placed, and after that all the instrument was taken out, all the port was taken out under vision, pneumo was deflated. The umbilical port site was closed in 2 layers, the fascia with a 0 Vicryl interrupted suture, skin with a 4-0 Monocryl, and dry sterile dressing was applied. The patient tolerated the procedure well. Counts of the instrument was correct. There were no apparent complication. Chano Veliz MD MTDD
[2017-04-26] MEDS: Sodium Chloride 0.9% 1,000 ML IV SCH ×2 (04:27→13:32)
[2017-04-26] MEDS: Piperacillin/Tazobact 3.375 GM in Sodium Chloride 0.9% 100 ML IVPB SCH ×4 (04:31→22:21)
--- NOTE | 2017-04-26 07:27 | CP.PCM.PN ---
<Jessie Paulino - Last Filed: 04/26/17 07:24> Subjective - Date & Time of Evaluation Date of Evaluation: 04/26/17 Time of Evaluation: 07:24 - Subjective Subjective: General Surgery - Dr. Veliz Pt S&E. LYNETTE. PT complains of mild lower abdominal pain, improved from yesterday. She is tolerating regular diet, OOB and ambulating. No N/V, F/C, SOB /Cp. Finesse drain in LLQ with cloudy/serous drainage. Objective - Vital Signs/Intake and Output Vital Signs (last 24 hours): Temp Pulse Resp BP Pulse Ox 98.8 F 98 H 18 119/75 98 04/26/17 00:00 04/26/17 00:00 04/26/17 00:00 04/26/17 00:00 04/26/17 00:00 Intake and Output: 04/26/17 04/26/17 06:59 18:59 Output Total 40 Balance -40 - Medications Medications: Current Medications Enoxaparin Sodium (Lovenox) 40 mg SC DAILY [facility] PRN Reason: Protocol Last Admin: 04/25/17 16:50 Dose: 40 mg Famotidine (Pepcid) 20 mg IVP DAILY [facility] Last Admin: 04/25/17 08:51 Dose: 20 mg Piperacillin Sod/Tazobactam (Sod 3.375 gm/ Sodium Chloride) 100 mls @ 100 mls/ hr IVPB Q6 [facility] Last Admin: 04/26/17 04:31 Dose: 100 mls/hr Metronidazole (Flagyl 500mg/100ml Ns) 100 mls @ 100 mls/hr IVPB Q8 [facility] Last Admin: 04/26/17 00:25 Dose: 100 mls/hr Sodium Chloride (Sodium Chloride 0.9%) 1,000 mls @ 100 mls/hr IV .Q10H [facility] Stop: 04/26/17 17:22 Last Admin: 04/26/17 04:27 Dose: Not Given Insulin Human Regular (Humulin R) 0 units SC Q6H [facility] PRN Reason: Protocol Last Admin: 04/26/17 06:46 Dose: 2 units Morphine Sulfate (Morphine) 4 mg IVP Q4 PRN PRN Reason: Pain, severe (8-10) Last Admin: 04/26/17 04:49 Dose: 4 mg Morphine Sulfate (Morphine) 2 mg IVP Q4 PRN PRN Reason: Pain, moderate (4-7) Last Admin: 04/26/17 00:29 Dose: 2 mg Ondansetron HCl (Zofran Inj) 4 mg IVP Q4 PRN PRN Reason: Nausea/Vomiting - Labs Labs: 04/25/17 06:00 04/25/17 06:00 - Constitutional Appears: No Acute Distress - Head Exam Head Exam: ATRAUMATIC, NORMAL INSPECTION, NORMOCEPHALIC - Eye Exam Eye Exam: Normal appearance - Respiratory Exam Respiratory Exam: NORMAL BREATHING PATTERN. absent: Respiratory Distress - Cardiovascular Exam Cardiovascular Exam: REGULAR RHYTHM - GI/Abdominal Exam GI & Abdominal Exam: Soft. absent: Distended, Guarding, Tenderness, Rebound Additional comments: dressings C/D/I, finesse drain with serous drainage, 40cc overnight. - Neurological Exam Neurological Exam: Alert, Oriented x3 - Psychiatric Exam Psychiatric exam: Normal Affect, Normal Mood - Skin Skin Exam: Dry, Intact Assessment and Plan - Assessment and Plan (Free Text) Assessment: 56F, POD #2 s/p Lap appendectomy for perforated appendicitis -Continue Regular diet -F/u AM Labs -Continue IV Abx -Pain control PRN -Drain to remain in place upon discharge -DVT px Will DW Dr. Keren Paulino PGY3 <Chano Veliz - Last Filed: 04/26/17 11:43> Objective - Vital Signs/Intake and Output Vital Signs (last 24 hours): Temp Pulse Resp BP Pulse Ox 98.3 F 82 20 112/73 97 04/26/17 08:20 04/26/17 08:20 04/26/17 08:20 04/26/17 08:20 04/26/17 08:20 Intake and Output: 04/26/17 04/26/17 06:59 18:59 Output Total 40 Balance -40 - Medications Medications: Current Medications Enoxaparin Sodium (Lovenox) 40 mg SC DAILY [facility] PRN Reason: Protocol Last Admin: 04/26/17 09:04 Dose: 40 mg Famotidine (Pepcid) 20 mg IVP DAILY [facility] Last Admin: 04/26/17 09:04 Dose: 20 mg Piperacillin Sod/Tazobactam (Sod 3.375 gm/ Sodium Chloride) 100 mls @ 100 mls/ hr IVPB Q6 [facility] Last Admin: 04/26/17 10:29 Dose: 100 mls/hr Metronidazole (Flagyl 500mg/100ml Ns) 100 mls @ 100 mls/hr IVPB Q8 [facility] Last Admin: 04/26/17 09:03 Dose: 100 mls/hr Sodium Chloride (Sodium Chloride 0.9%) 1,000 mls @ 100 mls/hr IV .Q10H [facility] Stop: 04/26/17 17:22 Last Admin: 04/26/17 04:27 Dose: Not Given Insulin Human Regular (Humulin R) 0 units SC Q6H [facility] PRN Reason: Protocol Last Admin: 04/26/17 06:46 Dose: 2 units Ondansetron HCl (Zofran Inj) 4 mg IVP Q4 PRN PRN Reason: Nausea/Vomiting Oxycodone/Acetaminophen (Percocet 5/325 Mg Tab) 1 tab PO Q4 PRN PRN Reason: Pain, moderate (4-7) Stop: 04/29/17 11:16 Oxycodone/Acetaminophen (Percocet 5/325 Mg Tab) 2 tab PO Q6 PRN PRN Reason: Pain, severe (8-10) Stop: 04/29/17 11:16 - Labs Labs: 04/26/17 08:26 04/26/17 08:26 Attending/Attestation - Attestation I have personally seen and examined this patient.: Yes I have fully participated in the care of the patient.: Yes I have reviewed all pertinent clinical information, including history, physical exam and plan: Yes Notes (Text): 04/26/17 11:43 Pt was seen and examined at bedside on 04/26/17 Agree with above note and assessment
[2017-04-26 08:33] LABS: BASO # 0.1 K/uL (0.0-0.2); BASO % 0.6 % (0.0-2.0); EOS # 0.2 K/uL (0.0-0.7); EOS % 1.7 % (0.0-4.0); HEMOGLOBIN 10.9 g/dL (12.0-16.0); LYMPH # 1.5 K/uL (1.0-4.3); LYMPH % 10.9 % (20.0-40.0); MEAN CELL VOLUME 94.3 fl (81.0-99.0); MEAN CORPUSCULAR HEMOGLOBIN 30.8 pg (27.0-31.0); MEAN CORPUSCULAR HGB CONC 32.7 g/dL (33.0-37.0); MEAN PLATELET VOLUME 9.4 fl (7.2-11.7); NEUT % 79.8 % (50.0-75.0); NRBC % 0.2 % (0.0-0.0); RBC 3.54 Mil/uL (3.80-5.20); RED CELL DISTRIBUTION WIDTH 15.3 % (11.5-14.5); WHITE BLOOD COUNT 13.8 K/uL (4.8-10.8)
[2017-04-26 08:43] LABS: ALB/GLOB RATIO 1.1 (1.0-2.1); ALBUMIN 3.5 g/dL (3.5-5.0); ALT/SGPT 42 U/L (9-52); AST/SGOT 20 U/L (14-36); BLOOD UREA NITROGEN 16 mg/dl (7-17); CALCIUM 9.1 mg/dL (8.4-10.2); GFR AFRICAN-AMERICAN > 60; GFR NON-AFRICAN AMERICAN 57
[2017-04-26] MEDS: Enoxaparin 40 mg Syringe SC SCH (09:04)
--- NOTE | 2017-04-26 11:14 | CP.PCM.PN ---
Subjective - Date & Time of Evaluation Date of Evaluation: 04/26/17 Time of Evaluation: 11:00 - Subjective Subjective: Patient see and examined bedside. Still with lower abdominal pain especially with ambulation. Passing flatus today. Stats that pain medication makes her feel tired Hemodynamically stable, afebrile WBC trending down but still elevated 13.6 Objective - Vital Signs/Intake and Output Vital Signs (last 24 hours): Temp Pulse Resp BP Pulse Ox 98.3 F 82 20 112/73 97 04/26/17 08:20 04/26/17 08:20 04/26/17 08:20 04/26/17 08:20 04/26/17 08:20 Intake and Output: 04/26/17 04/26/17 06:59 18:59 Output Total 40 Balance -40 - Medications Medications: Current Medications Enoxaparin Sodium (Lovenox) 40 mg SC DAILY [facility] PRN Reason: Protocol Last Admin: 04/26/17 09:04 Dose: 40 mg Famotidine (Pepcid) 20 mg IVP DAILY [facility] Last Admin: 04/26/17 09:04 Dose: 20 mg Piperacillin Sod/Tazobactam (Sod 3.375 gm/ Sodium Chloride) 100 mls @ 100 mls/ hr IVPB Q6 [facility] Last Admin: 04/26/17 10:29 Dose: 100 mls/hr Metronidazole (Flagyl 500mg/100ml Ns) 100 mls @ 100 mls/hr IVPB Q8 [facility] Last Admin: 04/26/17 09:03 Dose: 100 mls/hr Sodium Chloride (Sodium Chloride 0.9%) 1,000 mls @ 100 mls/hr IV .Q10H [facility] Stop: 04/26/17 17:22 Last Admin: 04/26/17 04:27 Dose: Not Given Insulin Human Regular (Humulin R) 0 units SC Q6H [facility] PRN Reason: Protocol Last Admin: 04/26/17 06:46 Dose: 2 units Morphine Sulfate (Morphine) 4 mg IVP Q4 PRN PRN Reason: Pain, severe (8-10) Last Admin: 04/26/17 04:49 Dose: 4 mg Morphine Sulfate (Morphine) 2 mg IVP Q4 PRN PRN Reason: Pain, moderate (4-7) Last Admin: 04/26/17 09:21 Dose: 2 mg Ondansetron HCl (Zofran Inj) 4 mg IVP Q4 PRN PRN Reason: Nausea/Vomiting - Labs Labs: 04/26/17 08:26 04/26/17 08:26 - Constitutional Appears: Non-toxic, No Acute Distress, Other (obese) - Head Exam Head Exam: ATRAUMATIC, NORMAL INSPECTION, NORMOCEPHALIC - Eye Exam Eye Exam: EOMI, Normal appearance, PERRL Pupil Exam: NORMAL ACCOMODATION - ENT Exam ENT Exam: Mucous Membranes Moist, Normal Exam - Neck Exam Neck Exam: Full ROM, Normal Inspection - Respiratory Exam Respiratory Exam: Clear to Ausculation Bilateral, NORMAL BREATHING PATTERN. absent: Rales, Rhonchi, Wheezes, Respiratory Distress - Cardiovascular Exam Cardiovascular Exam: REGULAR RHYTHM, RRR, +S1, +S2. absent: JVD - GI/Abdominal Exam GI & Abdominal Exam: Soft, Tenderness (with deep palpation ), Normal Bowel Sounds. absent: Distended, Guarding, Rebound Additional comments: LLQ MELLISA drain - Rectal Exam Rectal Exam: Deferred - Extremities Exam Extremities Exam: Full ROM, Normal Capillary Refill, Normal Inspection. absent : Pedal Edema - Back Exam Back Exam: NORMAL INSPECTION - Neurological Exam Neurological Exam: Alert, Awake, CN II-XII Intact, Oriented x3 - Psychiatric Exam Psychiatric exam: Normal Affect - Skin Skin Exam: Dry, Pallor, Warm Assessment and Plan - Assessment and Plan (Free Text) Assessment: 56 years old female with hx of DM II, HTN, HLD, came with 2 day history of sudden unset of severe, continuous, sharp RLQ abdominal pain, radiating to the infra umbilical region and associated with nausea and vomits. Associated with urinary frequency and constipation. No Dysuria nor prior hx of abdominal pains. No surgeries, No fever. CT abdomen and pelvis showed acute appendicitis patient admitted to med/surg , started on IV zosyn and surgery was consulted Her WBC count was elevated 20 k She underwent laparascopic appendectomy 04/24 and LLQ MELLISA drain placed 1.Acute appendicitis s/p laparascopic appendectomy MELLISA drain to lower abdomen with serosanguinous output Continue IV Zosyn and Flagyl Change morphine to Percoset PRN Promote ambulation Surgery following WBC trended down from 20 K -- 13.6 K, afebrile MELLISA drain to remain for a couple of weeks as per surgery Tolerating pO intake Will discuss with surgery when patient cleared for discharge 2. HTN controlled without meds hold lisinopril and coreg 3. DM hold metformin and januvia, accuchecks, insulin coverage Hgb A1c 7.8 diabetic diet 4. Dyslipidemia -on statin 5.Hypothyroidism -on synthroid 6. MARTA most likely prerenal hold Lisinopril and Metformin Started IVF NS @ 100 cc /hr 7. DVt prophylaxis SCD and Lovenox
[2017-04-26] MEDS ORDERED: Oxycodone/Acetaminophen 5/325 mg Tab PO PRN (11:15)
[2017-04-26] MEDS: Oxycodone/Acetaminophen 5/325 mg Tab PO PRN ×2 (15:40→22:31)
[2017-04-27] MEDS: metroNIDAZOLE 500mg/100ml NS 100 ML IVPB SCH ×2 (00:37→09:12)
[2017-04-27] MEDS: Insulin Regular 100 units/ml SC SCH ×3 (00:40→14:27)
[2017-04-27] MEDS: Piperacillin/Tazobact 3.375 GM in Sodium Chloride 0.9% 100 ML IVPB SCH ×3 (04:47→15:33)
[2017-04-27] MEDS: Oxycodone/Acetaminophen 5/325 mg Tab PO PRN ×3 (05:25→14:26)
[2017-04-27 06:22] LABS: BLOOD UREA NITROGEN 16 mg/dl (7-17); GFR AFRICAN-AMERICAN > 60; GFR NON-AFRICAN AMERICAN 57
[2017-04-27 07:02] LABS: BASO # 0.1 K/uL (0.0-0.2); BASO % 0.8 % (0.0-2.0); EOS # 0.5 K/uL (0.0-0.7); EOS % 4.3 % (0.0-4.0); HEMOGLOBIN 11.4 g/dL (12.0-16.0); LYMPH # 1.7 K/uL (1.0-4.3); LYMPH % 15.3 % (20.0-40.0); MEAN CELL VOLUME 94.6 fl (81.0-99.0); MEAN CORPUSCULAR HEMOGLOBIN 30.5 pg (27.0-31.0); MEAN CORPUSCULAR HGB CONC 32.2 g/dL (33.0-37.0); MEAN PLATELET VOLUME 9.4 fl (7.2-11.7); MONO # 0.9 K/uL (0.0-0.8); MONO % 8.2 % (0.0-10.0); NEUT # 8.1 K/uL (1.8-7.0); NEUT % 71.4 % (50.0-75.0); NRBC % 0.2 % (0.0-0.0); RBC 3.74 Mil/uL (3.80-5.20); RED CELL DISTRIBUTION WIDTH 15.6 % (11.5-14.5); WHITE BLOOD COUNT 11.3 K/uL (4.8-10.8)
[2017-04-27] MEDS: Enoxaparin 40 mg Syringe SC SCH (09:13)
--- NOTE | 2017-04-27 09:46 | CP.PCM.DIS ---
Provider - Provider Date of Admission: 04/24/17 01:04 Attending physician: Clarence Pearce Primary care physician: Dr Mcmillan Consults: Surgery : dr Veliz Time Spent in preparation of Discharge (in minutes): 35 Diagnosis - Discharge Diagnosis (1) Acute appendicitis with appendiceal abscess Status: Acute (2) HTN (hypertension) Status: Chronic (3) DM type 2 (diabetes mellitus, type 2) Status: Chronic (4) MARTA (acute kidney injury) Status: Acute (5) DVT prophylaxis Status: Acute Hospital Course - Lab Results Lab Results: Most Recent Lab Values WBC 11.3 K/uL (4.8-10.8) H 04/27/17 05:25 RBC 3.74 Mil/uL (3.80-5.20) L 04/27/17 05:25 Hgb 11.4 g/dL (12.0-16.0) L 04/27/17 05:25 Hct 35.4 % (34.0-47.0) 04/27/17 05:25 MCV 94.6 fl (81.0-99.0) 04/27/17 05:25 MCH 30.5 pg (27.0-31.0) 04/27/17 05:25 MCHC 32.2 g/dL (33.0-37.0) L 04/27/17 05:25 RDW 15.6 % (11.5-14.5) H 04/27/17 05:25 Plt Count 317 K/uL (130-400) 04/27/17 05:25 MPV 9.4 fl (7.2-11.7) 04/27/17 05:25 Neut % (Auto) 71.4 % (50.0-75.0) 04/27/17 05:25 Lymph % (Auto) 15.3 % (20.0-40.0) L 04/27/17 05:25 [place] % (Auto) 8.2 % (0.0-10.0) 04/27/17 05:25 Eos % (Auto) 4.3 % (0.0-4.0) H 04/27/17 05:25 Baso % (Auto) 0.8 % (0.0-2.0) 04/27/17 05:25 Neut # 8.1 K/uL (1.8-7.0) H 04/27/17 05:25 Lymph # 1.7 K/uL (1.0-4.3) 04/27/17 05:25 [place] # 0.9 K/uL (0.0-0.8) H 04/27/17 05:25 Eos # 0.5 K/uL (0.0-0.7) 04/27/17 05:25 Baso # 0.1 K/uL (0.0-0.2) 04/27/17 05:25 Neutrophils % (Manual) 85 % (42-75) H 04/23/17 20:50 Lymphocytes % (Manual) 10 % (20-50) L 04/23/17 20:50 Monocytes % (Manual) 5 % (0-10) 04/23/17 20:50 Platelet Estimate Normal (NORMAL) 04/23/17 20:50 pO2 15 mm/Hg (30-55) L 04/23/17 22:24 VBG pH 7.32 (7.32-7.43) 04/23/17 22:24 VBG pCO2 43 mmHg (40-60) 04/23/17 22:24 VBG HCO3 19.7 mmol/L 04/23/17 22:24 VBG Total CO2 23.5 mmol/L (22-28) 04/23/17 22:24 VBG O2 Sat (Calc) 22.7 % (40-65) L 04/23/17 22:24 VBG Base Excess -3.9 mmol/L (0.0-2.0) L 04/23/17 22:24 VBG Potassium 4.5 mmol/L (3.6-5.2) 04/23/17 22:24 Sodium 133.0 mmol/L (132-148) 04/23/17 22:24 Chloride 94.0 mmol/L (98-107) L 04/23/17 22:24 Glucose 174 mg/dL (65-105) H 04/23/17 22:24 Lactate 1.9 mmol/L (0.7-2.1) 04/23/17 22:24 FiO2 21.0 % 04/23/17 22:24 Sodium 138 mmol/l (132-148) 04/27/17 05:25 Potassium 3.7 MMOL/L (3.6-5.0) 04/27/17 05:25 Chloride 107 mmol/L (98-107) 04/27/17 05:25 Carbon Dioxide 15 mmol/L (22-30) L 04/27/17 05:25 Anion Gap 20 (10-20) 04/27/17 05:25 BUN 16 mg/dl (7-17) 04/27/17 05:25 Creatinine 1.0 mg/dL (0.7-1.2) 04/27/17 05:25 Est GFR ( Amer) > 60 04/27/17 05:25 Est GFR (Non-Af Amer) 57 04/27/17 05:25 POC Glucose (mg/dL) 234 mg/dL (65-110) H 04/27/17 06:02 Random Glucose 202 mg/dL (65-105) H 04/27/17 05:25 Hemoglobin A1c 7.8 % (4.2-6.5) H 04/24/17 06:00 Calcium 9.0 mg/dL (8.4-10.2) 04/27/17 05:25 Total Bilirubin 0.9 mg/dl (0.2-1.3) 04/26/17 08:26 AST 20 U/L (14-36) 04/26/17 08:26 ALT 42 U/L (9-52) 04/26/17 08:26 Alkaline Phosphatase 73 U/L (38-126) 04/26/17 08:26 Total Protein 6.7 G/DL (6.3-8.2) 04/26/17 08:26 Albumin 3.5 g/dL (3.5-5.0) 04/26/17 08:26 Globulin 3.3 gm/dL (2.2-3.9) 04/26/17 08:26 Albumin/Globulin Ratio 1.1 (1.0-2.1) 04/26/17 08:26 Lipase 44 U/L (23-300) 04/23/17 20:50 Venous Blood Potassium 4.5 mmol/L (3.6-5.2) 04/23/17 22:24 Urine Color Yellow (YELLOW) 04/23/17 20:43 Urine Clarity Slighty-cloudy (Clear) 04/23/17 20:43 Urine pH 5.0 (5.0-8.0) 04/23/17 20:43 Ur Specific [place] 1.031 (1.003-1.030) H 04/23/17 20:43 Urine Protein 30 mg/dL (NEGATIVE) 04/23/17 20:43 Urine Glucose (UA) >=500 mg/dL (Normal) 04/23/17 20:43 Urine Ketones 80 mg/dL (NEGATIVE) 04/23/17 20:43 Urine Blood Small (NEGATIVE) 04/23/17 20:43 Urine Nitrate Negative (NEGATIVE) 04/23/17 20:43 Urine Bilirubin Negative (NEGATIVE) 04/23/17 20:43 Urine Urobilinogen 0.2-1.0 mg/dL (0.2-1.0) 04/23/17 20:43 Ur Leukocyte Esterase Neg Leslie/uL (Negative) 04/23/17 20:43 Urine RBC (Auto) 3 /hpf (0-3) 04/23/17 20:43 Urine Microscopic WBC 11 /hpf (0-5) H 04/23/17 20:43 Ur Squamous Epith Cells 2 /hpf (0-5) 04/23/17 20:43 Blood Type A POSITIVE 04/23/17 20:50 Blood Type Confirm A POSITIVE 04/23/17 23:59 Antibody Screen Negative 04/23/17 20:50 BBK History Checked No verified bt 04/23/17 20:50 - Hospital Course Hospital Course: 56 years old female with hx of DM II, HTN, HLD, came with 2 day history of sudden onset of severe, continuous, sharp RLQ abdominal pain, radiating to the infra umbilical region and associated with nausea and vomiting. CT abdomen and pelvis showed acute appendicitis. Patient was admitted to med/ surg , started on IV zosyn and surgery was consulted Her WBC count was elevated 20 k She underwent laparascopic appendectomy on 04/24 and LLQ MELLISA drain placed . Cleared by Surgery for discharge on PO abx 1.Acute appendicitis s/p laparascopic appendectomy MELLISA drain to lower abdomen Received IV Zosyn and Flagyl Pain mgt - morphine and Percocet PRN Promote ambulation Surgery cleared pt for discharge on PO antibiotics WBC trended down from 20 K -- 11 K, afebrile MELLISA drain to remain for a couple of weeks as per surgery Tolerating pO intake, + BM 2. HTN controlled cont home meds lisinopril and coreg 3. DM metformin and januvia accuchecks, insulin coverage Hgb A1c 7.8 diabetic diet 4. Dyslipidemia -on statin 5.Hypothyroidism -on synthroid 6. MARTA most likely prerenal held Lisinopril and Metformin Started IVF 7. DVt prophylaxis SCD and Lovenox Discharge Exam - Head Exam Head Exam: ATRAUMATIC, NORMAL INSPECTION, NORMOCEPHALIC - Eye Exam Eye Exam: EOMI, Normal appearance, PERRL Pupil Exam: NORMAL ACCOMODATION - ENT Exam ENT Exam: Mucous Membranes Moist, Normal External Ear Exam - Neck Exam Neck exam: Full Rom - Respiratory Exam Respiratory Exam: NORMAL BREATHING PATTERN. absent: Respiratory Distress - Cardiovascular Exam Cardiovascular Exam: REGULAR RHYTHM, +S1, +S2 - GI/Abdominal Exam GI & Abdominal Exam: Normal Bowel Sounds, Soft, Tenderness (mild tenderness) Additional comments: MELLISA drain lower abd - Extremities Exam Extremities exam: normal capillary refill, pedal pulses present Additional comments: no calf tenderness - Back Exam Back exam: FULL ROM. absent: CVA tenderness (L), CVA tenderness (R) - Neurological Exam Neurological exam: Alert, CN II-XII Intact, Oriented x3, Reflexes Normal - Psychiatric Exam Psychiatric exam: Normal Affect, Normal Mood - Skin Skin Exam: Dry, Normal Color Discharge Plan - Discharge Medications Prescriptions: Ciprofloxacin 500 mg PO BID #28 ml Lactobacillus Acidophilus [Bacid Acidophilus] 1 cap PO BID #30 cap Metronidazole [Flagyl] 500 mg PO TID #42 tab oxyCODONE/Acetaminophen [Percocet 5/325 mg Tab] 1 tab PO Q6 PRN #20 tab PRN Reason: Pain, Moderate (4-7) - Follow Up Plan Condition: GOOD Disposition: HOME/ ROUTINE Instructions: [place] Drain Care (DC), Open Appendectomy (DC), Laparoscopic Appendectomy (DC) Additional Instructions: Keep MELLISA drain ff up with Dr Veliz in 1-2 wks ff up with PMD [place] Referrals: Chano Veliz MD [Staff Provider] -
--- NOTE | 2017-04-27 10:03 | CP.PCM.PN ---
Subjective - Date & Time of Evaluation Date of Evaluation: 04/27/17 Time of Evaluation: 10:00 - Subjective Subjective: General Surgery - Dr. Veliz Pt S&E. LYNETTE. Pt has mild suprapubic abdominal pain at site of finesse drain, otherwise no complaints. She is tolerating regular diet, ambulating, and having BMs. No N/V, F/C, SOb/Cp. Objective - Vital Signs/Intake and Output Vital Signs (last 24 hours): Temp Pulse Resp BP Pulse Ox 97.7 F 55 L 73 H 115/73 20 L 04/27/17 08:10 04/27/17 08:10 04/27/17 08:10 04/27/17 08:10 04/27/17 08:10 - Medications Medications: Current Medications Enoxaparin Sodium (Lovenox) 40 mg SC DAILY [facility] PRN Reason: Protocol Last Admin: 04/27/17 09:13 Dose: 40 mg Famotidine (Pepcid) 20 mg IVP DAILY [facility] Last Admin: 04/27/17 09:12 Dose: 20 mg Piperacillin Sod/Tazobactam (Sod 3.375 gm/ Sodium Chloride) 100 mls @ 100 mls/ hr IVPB Q6 [facility] Last Admin: 04/27/17 04:47 Dose: 100 mls/hr Metronidazole (Flagyl 500mg/100ml Ns) 100 mls @ 100 mls/hr IVPB Q8 [facility] Last Admin: 04/27/17 09:12 Dose: 100 mls/hr Insulin Human Regular (Humulin R) 0 units SC Q6H [facility] PRN Reason: Protocol Last Admin: 04/27/17 07:40 Dose: 3 units Ondansetron HCl (Zofran Inj) 4 mg IVP Q4 PRN PRN Reason: Nausea/Vomiting Oxycodone/Acetaminophen (Percocet 5/325 Mg Tab) 1 tab PO Q4 PRN PRN Reason: Pain, moderate (4-7) Stop: 04/29/17 11:16 Last Admin: 04/27/17 09:20 Dose: 1 tab Oxycodone/Acetaminophen (Percocet 5/325 Mg Tab) 2 tab PO Q6 PRN PRN Reason: Pain, severe (8-10) Stop: 04/29/17 11:16 - Labs Labs: 04/27/17 05:25 08/03/17 05:25 - Constitutional Appears: No Acute Distress - Head Exam Head Exam: ATRAUMATIC, NORMAL INSPECTION, NORMOCEPHALIC - Eye Exam Eye Exam: Normal appearance - ENT Exam ENT Exam: Mucous Membranes Moist - Respiratory Exam Respiratory Exam: NORMAL BREATHING PATTERN. absent: Respiratory Distress - Cardiovascular Exam Cardiovascular Exam: REGULAR RHYTHM - GI/Abdominal Exam GI & Abdominal Exam: Soft. absent: Distended, Guarding, Tenderness, Rebound Additional comments: incisions C/D/I with steristrips Finesse drain in suprapubic incision w/ purulent drainage, 10cc/24hrs - Neurological Exam Neurological Exam: Alert, Oriented x3 - Psychiatric Exam Psychiatric exam: Normal Affect, Normal Mood - Skin Skin Exam: Dry, Intact Assessment and Plan - Assessment and Plan (Free Text) Assessment: 56F POD #3 s/p Lap appendectomy for perforated appendicitis -Tolerating regular diet, ambulating, having bowel function, WBC trending down -Clear for discharge from surgical standpoint -Pt was instructed on drain care at home and will be able to empty the drain herself and record outputs -DC with Cipro/Flagyl PO and Percocet prn for pain -F/U with Dr. Veliz in office in 2 weeks, at which time drain will be removed DW Dr. Veliz and Hospitalist team [place] PGY3
[2017-04-27 15:57] VITALS: BP 123/74; PULSE 77; RESP 17; TEMP 98.9; O2SAT 98
== END 2017-04-27 17:55 | disposition home or self-care (01) | DRG 553 ==
LOC: H.ER 19:21 → H.EROBSV 20:15 → H.ERHOLD 04-24 01:02 → OBSVTOIN 04-24 01:04 → H.MEDSURG1 04-24 02:26
PROVIDERS: ADMIT Internal Medicine; ATTEND Internal Medicine
PROC: 0DNJ4ZZ Release Appendix, Percutaneous Endoscopic Approach (ICD-10-PCS; 2017-04-24)
PROC: 0DNE4ZZ Release Large Intestine, Percutaneous Endoscopic Approach (ICD-10-PCS; 2017-04-24)
PROC: 0D9W4ZZ Drainage of Peritoneum, Percutaneous Endoscopic Approach (ICD-10-PCS; 2017-04-24)
PROC: 0DTJ4ZZ Resection of Appendix, Percutaneous Endoscopic Approach (ICD-10-PCS; principal; 2017-04-24 15:00)
DX: K35.3 Acute appendicitis with localized peritonitis (principal); N17.9 Acute kidney failure, unspecified; E11.22 Type 2 diabetes mellitus with diabetic chronic kidney disease; E11.40 Type 2 diabetes mellitus with diabetic neuropathy, unspecified; N18.3 Chronic kidney disease, stage 3 (moderate); E03.9 Hypothyroidism, unspecified; E28.2 Polycystic ovarian syndrome; E66.01 Morbid (severe) obesity due to excess calories; Z68.36 Body mass index [BMI] 36.0-36.9, adult; E78.5 Hyperlipidemia, unspecified; E78.00 Pure hypercholesterolemia, unspecified; I12.9 Hypertensive chronic kidney disease with stage 1 through stage 4 chronic kidney disease, or unspecified chronic kidney disease; K59.00 Constipation, unspecified; K66.0 Peritoneal adhesions (postprocedural) (postinfection); R35.0 Frequency of micturition; G89.29 Other chronic pain; E11.65 Type 2 diabetes mellitus with hyperglycemia